=== PATIENT | male | born 1960 | race Caucasian/White ===

== ENCOUNTER 2018-06-19 07:32 | Emergency (ER) | payer MEDICARE, MEDICAID ==
--- NOTE | 2018-06-19 07:35 | EDM.PDOC ---
ED HPI GENERAL MEDICAL PROBLEM - General Stated Complaint: HARD TIME BREATHING [id number] Time Seen by Provider: 06/19/18 07:39 Source of Information: Reports: Patient History Limitations: Reports: No Limitations - History of Present Illness INITIAL COMMENTS - FREE TEXT/NARRATIVE: Pt to ER with c/o drainage from an abscess under the strap of his trach. Patient states a few days ago he noticed a "hard ball" under the trach. Patient states he was seen in the clinic and started on Augmentin. Patient states this morning the area "popped" and had quite a bit of foul smelling drainage. Patient states he is concerned about the "hole under the strap of the trach". Patient denies fever or chills. Patient has a hx of throat cancer, thus the trach. Patient states the pain has lessened since the abscess has opened up. Onset: Today, Gradual Neck Pain Score (Numeric/FACES): 3 - Related Data Allergies Allergy/AdvReac Type Severity Reaction Status Date / Time No Known Allergies Allergy Verified 06/19/18 07:41 Home Meds: Home Meds Aspirin [Stan Chewable] 81 mg PO DAILY 01/14/14 [History] fentaNYL [Duragesic] 75 mcg PO ASDIRECTED 01/14/14 [History] metFORMIN [Glucophage XR] 500 mg PO DAILY 01/14/14 [History] oxyCODONE 5 mg PO BID 01/14/14 [History] Fenofibrate Nanocrystallized [Fenofibrate] 145 mg PO DAILY 12/10/15 [History] Levothyroxine 150 mcg PO DAILY 12/10/15 [History] Losartan [Cozaar] 25 mg PO BEDTIME 12/10/15 [History] atorvaSTATin [Lipitor] 20 mg PO DAILY 12/10/15 [History] tiZANidine [Zanaflex] 8 mg PO Q6HR PRN 12/11/15 [History] Social & Family History - Living Situation & Occupation Living situation: Reports: , with Family Occupation: Disabled ED ROS GENERAL - Review of Systems Review Of Systems: ROS reveals no pertinent complaints other than HPI. ED EXAM, GENERAL - Physical Exam Exam: See Below Exam Limited By: No Limitations General Appearance: Alert, WD/WN, No Apparent Distress Eye Exam: Bilateral Eye: EOMI, Normal Inspection Ears: Normal External Exam, Hearing Grossly Normal Nose: Normal Inspection Throat/Mouth: Other (trach, open and draining abscess under the strap of the trach. ) Head: Atraumatic, Normocephalic Neck: Full Range of Motion Respiratory/Chest: No Respiratory Distress, Decreased Breath Sounds, Crackles, Rhonchi Cardiovascular: Normal Peripheral Pulses, Regular Rate, Rhythm, No Edema, No Gallop, No JVD, No Murmur, No Rub Peripheral Pulses: 2+: Radial (L), Radial (R) GI/Abdominal: Normal Bowel Sounds, Soft, Non-Tender (Male) Exam: Deferred Rectal (Males) Exam: Deferred Back Exam: Normal Inspection, Full Range of Motion Extremities: Normal Inspection, Normal Range of Motion, Non-Tender, No Pedal Edema, Normal Capillary Refill Neurological: Alert, Oriented, CN II-XII Intact, Normal Cognition, Normal Gait, Normal Reflexes, No Motor/Sensory Deficits Psychiatric: Normal Affect, Normal Mood Skin Exam: Warm, Dry, Wound/Incision (open skin abscess to the anterior neck, just below the trach site, small amount of white/bloody drainage. ) Lymphatic: No Adenopathy Course - Vital Signs Last Recorded V/S: Last Vital Signs Temp 97.4 F 06/19/18 07:48 Pulse 101 H 06/19/18 07:48 Resp 18 06/19/18 07:48 BP 157/87 H 06/19/18 07:48 Pulse Ox 93 L 06/19/18 07:48 - Orders/Labs/Meds Orders: Active Orders 24 hr Category Date Time Status CULTURE WOUND [RM] Urgent Lab 06/19/18 07:44 Received Meds: Medications Discontinued Medications Generic Name Dose Route Start Last Admin Trade Name Fariba PRN Reason Stop Dose Admin Mupirocin 1 gm 06/19/18 08:00 Bactroban Oint TOP 06/19/18 08:01 ONETIME ONE Departure - Departure Time of Disposition: 08:00 Disposition: Home, Self-Care 01 Condition: Fair Clinical Impression: Abscess - Discharge Information *PRESCRIPTION DRUG MONITORING PROGRAM REVIEWED*: No *COPY OF PRESCRIPTION DRUG MONITORING REPORT IN PATIENT MILLI: No Instructions: Skin Abscess, [id number] Forms: ED Department Discharge Additional Instructions: Change Antibiotics to Doxycycline Cover with Bactroban and a gauze pad until healed Follow up with your primary care facility - My Orders Last 24 Hours: My Active Orders 06/19/18 07:44 CULTURE WOUND [RM] Urgent - Assessment/Plan Last 24 Hours: My Active Orders 06/19/18 07:44 CULTURE WOUND [RM] Urgent
[2018-06-19 07:49] VITALS: BP 157/87
[2018-06-19] MEDS: Mupirocin Oint 22 GM Tube TOP ONE (08:05)
== END 2018-06-19 08:19 | disposition home or self-care (01) ==
LOC: DL.ED 07:32
DX: L02.11 Cutaneous abscess of neck (principal); Z79.899 Other long term (current) drug therapy; Z79.82 Long term (current) use of aspirin; Z79.84 Long term (current) use of oral hypoglycemic drugs
CPT/HCPCS: 87070; 99283; A9270

== ENCOUNTER 2019-07-08 19:39 | Emergency (ER) | payer MEDICARE, MEDICAID ==
[2019-07-08] MEDS ORDERED: Acetaminophen/HYDROcodone 325-10 MG Tab PO ONE (19:40)
--- NOTE | 2019-07-08 20:25 | EDM.PDOC ---
ED HPI GENERAL MEDICAL PROBLEM - General Chief Complaint: Lower Extremity Injury/Pain Stated Complaint: LEFT HEAL, CHICKEN BONE Time Seen by Provider: 07/08/19 20:24 Source of Information: Reports: Patient History Limitations: Reports: No Limitations - History of Present Illness INITIAL COMMENTS - FREE TEXT/NARRATIVE: stepped onto chicken bone 2 days ago. now swollen and painful Left Foot Pain Score (Numeric/FACES): 7 - Related Data Allergies Allergy/AdvReac Type Severity Reaction Status Date / Time amoxicillin Allergy Rash Verified 07/08/19 20:19 Home Meds: Home Meds Aspirin [Stan Chewable] 81 mg PO DAILY 01/14/14 [History] metFORMIN [Glucophage XR] 500 mg PO DAILY 01/14/14 [History] Fenofibrate Nanocrystallized [Fenofibrate] 145 mg PO DAILY 12/10/15 [History] Levothyroxine 150 mcg PO DAILY 12/10/15 [History] Losartan [Cozaar] 25 mg PO BEDTIME 12/10/15 [History] atorvaSTATin [Lipitor] 20 mg PO DAILY 12/10/15 [History] tiZANidine [Zanaflex] 8 mg PO Q6HR PRN 12/11/15 [History] Past Medical History - Past Surgical History HEENT Surgical History: Reports: Other (See Below) Other HEENT Surgeries/Procedures: tracheostomy Social & Family History - Living Situation & Occupation Living situation: Reports: , with Family Occupation: Disabled Review of Systems - Review of Systems Review Of Systems: ROS reveals no pertinent complaints other than HPI. ED EXAM, GENERAL - Physical Exam Exam: See Below Exam Limited By: No Limitations General Appearance: Alert, WD/WN, Mild Distress, Other (discomfort) Ears: Hearing Grossly Normal Throat/Mouth: Normal Voice, No Airway Compromise Head: Atraumatic Neck: Non-Tender, Full Range of Motion Respiratory/Chest: No Respiratory Distress Cardiovascular: Regular Rate, Rhythm GI/Abdominal: Soft, Non-Tender Extremities: Other (left heel erythematous swollen tender, NV wnl, gait limited to pain. no lymphangitis, old open wound without drainage.) Neurological: Alert, Oriented, Normal Cognition, No Motor/Sensory Deficits Psychiatric: Tearful Skin Exam: Warm, Dry, Normal Color Lymphatic: No Adenopathy Course - Vital Signs Last Recorded V/S: Last Vital Signs Temp 36.7 C 07/08/19 20:10 Pulse 102 H 07/08/19 20:10 Resp 20 07/08/19 20:10 BP 149/90 H 07/08/19 20:10 Pulse Ox 96 07/08/19 20:10 - Orders/Labs/Meds Orders: Active Orders 24 hr Category Date Time Status Vaccines to be Administered [RC] PER UNIT ROUTINE Care 07/08/19 20:32 Active Meds: Medications Discontinued Medications Generic Name Dose Route Start Last Admin Trade Name Frejennifer PRN Reason Stop Dose Admin Diphtheria/Tetanus/Acell Pertussis 0.5 ml 07/08/19 20:32 07/08/19 20:47 Adacel IM 07/08/19 20:33 0.5 ml .ONCE ONE Administration - Re-Assessments/Exams Free Text/Narrative Re-Assessment/Exam: 07/08/19 21:23 x-ray results discussed with pt. Departure - Departure Time of Disposition: 21:25 Disposition: Home, Self-Care 01 Condition: Good Clinical Impression: Wound infection, Cellulitis of heel, left - Discharge Information Instructions: Cellulitis, Adult, [id number] Forms: ED Department Discharge Additional Instructions: 1) elevate leg as much as possible 2) continue warm epsom salts soak daily 3) follow up at clinic rx givne; clindamycin 300mg qid x 40 vicodin 325mg bid prn x 6 - My Orders Last 24 Hours: My Active Orders 07/08/19 20:32 Vaccines to be Administered [RC] PER UNIT ROUTINE - Assessment/Plan Last 24 Hours: My Active Orders 07/08/19 20:32 Vaccines to be Administered [RC] PER UNIT ROUTINE
[2019-07-08 20:32] VITALS: BP 149/90; PULSE 102
[2019-07-08] MEDS ORDERED: Diphtheria,Pertussis(Acell),Tetanus Vaccine 0.5 ML SDV IM ONE (20:32)
[2019-07-08] MEDS ORDERED: Acetaminophen/HYDROcodone 325-10 MG Tab ONE (21:22)
[2019-07-08] MEDS ORDERED: Clindamycin HCl 150 MG Cap PO ONE (21:24)
== END 2019-07-08 21:32 | disposition home or self-care (01) ==
LOC: DL.ED 19:39
DX: L03.116 Cellulitis of left lower limb (principal); Z88.1 Allergy status to other antibiotic agents; Z79.82 Long term (current) use of aspirin; Z23 Encounter for immunization
CPT/HCPCS: 73620; 90471; 90715; 99283; A9270

== ENCOUNTER 2020-01-16 13:38 | Emergency (ER) | payer MEDICARE, MEDICAID ==
[2020-01-16 14:43] LABS: ANION GAP 16.7 mEq/L (7-13); CHLORIDE,CL 101 mmol/L (98-107); SODIUM,NA 139 mmol/L (136-145)
[2020-01-16] MEDS ORDERED: Vancomycin 1.75 GM in Sodium Chloride 0.9% 500 ML IV ONE (14:46)
[2020-01-16 15:24] VITALS: BP 141/79; PULSE 77
--- NOTE | 2020-01-16 15:41 | EDM.PDOC ---
ED HPI GENERAL MEDICAL PROBLEM - General Chief Complaint: Upper Extremity Injury/Pain Stated Complaint: infection in finger Time Seen by Provider: 01/16/20 14:15 Source of Information: Reports: Patient History Limitations: Reports: No Limitations - History of Present Illness INITIAL COMMENTS - FREE TEXT/NARRATIVE: This 59 yo male patient was sent to the ED by Dr. Mitchell ([facility]) due to a cellulitis in his right thumb. The patient was seen in the Clinic today and started on Bactrim. Throughout the morning the patient has noticed increased pain in the area and a red streak running up his arm. The patient called back to the clinic to report new findings and was sent to the ED for IV antibiotics. Onset Date: 01/13/20 Duration: Constant, Getting Worse Location: Reports: Upper Extremity, Right Quality: Reports: Ache, Pressure, Sharp Severity: Severe Improves with: Reports: None Worsens with: Reports: None Context: Reports: Other Associated Symptoms: Reports: No Other Symptoms Treatments MANAGER DIALYSIS: Reports: Other Medication(s) (Bactrim (one dose)) Right Finger-Thumb Pain Score (Numeric/FACES): 9 - Related Data Allergies Allergy/AdvReac Type Severity Reaction Status Date / Time amoxicillin Allergy Rash Verified 01/16/20 13:51 Home Meds: Home Meds Aspirin [Stan Chewable] 81 mg PO DAILY 01/14/14 [History] metFORMIN [Glucophage XR] 500 mg PO DAILY 01/14/14 [History] Fenofibrate Nanocrystallized [Fenofibrate] 145 mg PO DAILY 12/10/15 [History] Levothyroxine 150 mcg PO DAILY 12/10/15 [History] Losartan [Cozaar] 25 mg PO BEDTIME 12/10/15 [History] atorvaSTATin [Lipitor] 20 mg PO DAILY 12/10/15 [History] tiZANidine [Zanaflex] 8 mg PO Q6HR PRN 12/11/15 [History] Past Medical History HEENT History: Reports: Impaired Vision Cardiovascular History: Reports: None Respiratory History: Reports: None Gastrointestinal History: Reports: GERD Genitourinary History: Reports: None Musculoskeletal History: Reports: None Neurological History: Reports: None Psychiatric History: Reports: None Endocrine/Metabolic History: Reports: Diabetes, Type II Hematologic History: Reports: None Immunologic History: Reports: None Oncologic (Cancer) History: Reports: Other (See Below) Other Oncologic History: Uvula Dermatologic History: Reports: None - Infectious Disease History Infectious Disease History: Reports: Measles - Past Surgical History Head Surgeries/Procedures: Reports: None HEENT Surgical History: Reports: Other (See Below) Other HEENT Surgeries/Procedures: tracheostomy Social & Family History - Tobacco Use Smoking Status *Q: Current Every Day Smoker Years of Tobacco use: 37 Packs/Tins Daily: 0.5 Second Hand Smoke Exposure: No - Caffeine Use Caffeine Use: Reports: Soda - Recreational Drug Use Recreational Drug Use: No - Living Situation & Occupation Living situation: Reports: , with Family Occupation: Disabled Review of Systems - Review of Systems Review Of Systems: Comprehensive ROS is negative, except as noted in HPI. ED EXAM, GENERAL - Physical Exam Exam: See Below Exam Limited By: No Limitations General Appearance: Alert, WD/WN, Moderate Distress Eye Exam: Bilateral Eye: EOMI, Normal Inspection, PERRL Ears: Normal External Exam, Normal Canal, Hearing Grossly Normal, Normal TMs Nose: Normal Inspection, Normal Mucosa, No Blood Throat/Mouth: Normal Inspection, Normal Lips, Normal Teeth, Normal Gums, Normal Oropharynx, Normal Voice, No Airway Compromise Head: Atraumatic, Normocephalic Neck: Normal Inspection, Supple, Non-Tender, Full Range of Motion Respiratory/Chest: No Respiratory Distress, Lungs Clear, Normal Breath Sounds, No Accessory Muscle Use, Chest Non-Tender Cardiovascular: Normal Peripheral Pulses, Regular Rate, Rhythm, No Edema, No Gallop, No JVD, No Murmur, No Rub GI/Abdominal: Normal Bowel Sounds (Male) Exam: Deferred Rectal (Males) Exam: Deferred Back Exam: Normal Inspection, Full Range of Motion, NT Extremities: Arm Pain (right thumb and arm pain. There is redness running up the arm to the axilla, but no drainage noted at this time. ) Psychiatric: Normal Affect, Normal Mood Skin Exam: Warm, Dry, Other (cellulitis right thumb. ) Lymphatic: No Adenopathy Course - Vital Signs Last Recorded V/S: Last Vital Signs Temp 36.6 C 01/16/20 15:23 Pulse 77 01/16/20 15:23 Resp 18 01/16/20 15:23 BP 141/79 H 01/16/20 15:23 Pulse Ox 94 L 01/16/20 15:23 - Orders/Labs/Meds Orders: Active Orders 24 hr Category Date Time Status CULTURE BLOOD [BC] Stat Lab 01/16/20 13:57 Received CULTURE BLOOD [BC] Stat Lab 01/16/20 13:57 Received Blood Culture x2 Reflex Set [OM.PC] Stat Oth 01/16/20 13:47 Ordered Labs: Laboratory Tests 01/16/20 01/16/20 01/16/20 Range/Units 13:52 13:52 13:52 WBC 17.8 H (5.0-10.0) 10^3/uL RBC 6.02 (4.6-6.2) 10^6/uL Hgb 17.3 D (14.0-18.0) g/dL Hct 51.0 (40.0-54.0) % MCV 84.7 D (80-100) fL MCH 28.7 (27.0-34.0) pg MCHC 33.9 (33.0-35.0) g/dL Plt Count 243 (150-450) 10^3/uL Neut % (Auto) 79.0 H (42.2-75.2) % Lymph % (Auto) 12.2 L (20.5-50.1) % [place] % (Auto) 7.9 (2-8) % Eos % (Auto) 0.7 L (1.0-3.0) % Baso % (Auto) 0.2 (0.0-1.0) % Sodium 139 (136-145) mmol/L Potassium 3.7 (3.5-5.1) mmol/L Chloride 101 (98-107) mmol/L Carbon Dioxide 25 (21-32) mmol/L Anion Gap 16.7 H (7-13) mEq/L BUN 10 (7-18) mg/dL Creatinine 0.95 (0.70-1.30) mg/dL Est Cr Clr Drug Dosing 87.51 mL/min Estimated GFR (MDRD) > 60 BUN/Creatinine Ratio 10.5 (No establ ref range) Glucose 130 H (74-99) mg/dL Lactic Acid 1.2 (0.4-2.0) mmol/L Calcium 9.2 (8.5-10.1) mg/dL Total Bilirubin 0.6 (0.2-1.0) mg/dL AST 21 (15-37) U/L ALT 46 (16-63) U/L Alkaline Phosphatase 129 H (46-116) U/L Total Protein 7.5 (6.4-8.2) g/dL Albumin 4.1 (3.4-5.0) g/dL Globulin 3.4 Albumin/Globulin Ratio 1.2 Meds: Medications Discontinued Medications Generic Name Dose Route Start Last Admin Trade Name Freq PRN Reason Stop Dose Admin Vancomycin HCl 1.75 gm/ Sodium 500 mls @ 334 mls/hr 01/16/20 14:46 01/16/20 15:09 Chloride IV 01/16/20 16:15 334 mls/hr ONETIME ONE Administration Departure - Departure Time of Disposition: 17:19 Disposition: Home, Self-Care 01 Condition: Fair Clinical Impression: Cellulitis of right thumb - Discharge Information *PRESCRIPTION DRUG MONITORING PROGRAM REVIEWED*: Not Applicable *COPY OF PRESCRIPTION DRUG MONITORING REPORT IN PATIENT MILLI: Not Applicable Instructions: Cellulitis, Adult, [id number] Forms: ED Department Discharge Care Plan Goals: The patient was advised of the examination and lab results during the visit. The patient was given an IV dose of Vancomycin while in the ED. The patient was discharged with a script for Keflex (500 mg) #30 to take 1 by mouth 3 times per day for 10 days. The patient should continue to take the Bactrim as prescribed by his primary care provider. The patient was encouraged to follow-up with his primary care facility. If the patient has any additional symptoms or concerns, the patient should either return to the emergency department or visit his primary care facility. Sepsis Event Note - Evaluation Sepsis Screening Result: No Definite Risk - Focused Exam Vital Signs: Vital Signs Temp Pulse Resp BP Pulse Ox 01/16/20 15:23 36.6 C 77 18 141/79 H 94 L 01/16/20 13:43 36.1 C 98 20 142/93 H 95 Date Exam was Performed: 01/16/20 Time Exam was Performed: 17:19 - My Orders Last 24 Hours: My Active Orders 01/16/20 13:47 Blood Culture x2 Reflex Set [OM.PC] Stat 01/16/20 13:57 CULTURE BLOOD [BC] Stat CULTURE BLOOD [BC] Stat - Assessment/Plan Last 24 Hours: My Active Orders 01/16/20 13:47 Blood Culture x2 Reflex Set [OM.PC] Stat 01/16/20 13:57 CULTURE BLOOD [BC] Stat CULTURE BLOOD [BC] Stat
== END 2020-01-16 17:35 | disposition home or self-care (01) ==
LOC: DL.ED 13:38
DX: L03.011 Cellulitis of right finger (principal); Z88.1 Allergy status to other antibiotic agents; E11.9 Type 2 diabetes mellitus without complications; Z79.82 Long term (current) use of aspirin; Z79.84 Long term (current) use of oral hypoglycemic drugs; Z79.899 Other long term (current) drug therapy; F17.210 Nicotine dependence, cigarettes, uncomplicated
CPT/HCPCS: 36415; 80053; 83605; 85025; 87040; 96365; 96366; 99283; J3370; J7040

== ENCOUNTER 2020-01-17 14:20 | Emergency (ER) | payer MEDICARE, MEDICAID ==
--- NOTE | 2020-01-17 14:34 | EDM.PDOC ---
ED HPI GENERAL MEDICAL PROBLEM - General Chief Complaint: Skin Complaint Stated Complaint: THUMB INFECTED WAS HERE YEST Time Seen by Provider: 01/17/20 14:28 Source of Information: Reports: Patient History Limitations: Reports: No Limitations - History of Present Illness INITIAL COMMENTS - FREE TEXT/NARRATIVE: This 59 yo male patient reports to the ED with right thumb pain and redness. The patient was seen in both the ED yesterday and in the clinic yesterday with similar symptoms. The patient was given IV Vancomycin in the ED yesterday and has prescriptions for Bactrim and Keflex. The patient reports he has been taking his medications as prescribed. Duration: Day(s):, Constant Location: Reports: Upper Extremity, Right Quality: Reports: Ache Severity: Moderate Improves with: Reports: None Worsens with: Reports: None Context: Reports: Other Associated Symptoms: Reports: No Other Symptoms Treatments SACK REPAIRER: Reports: Acetaminophen, NSAIDS - Related Data Allergies Allergy/AdvReac Type Severity Reaction Status Date / Time amoxicillin Allergy Rash Verified 01/16/20 13:51 Home Meds: Home Meds Aspirin [Stan Chewable] 81 mg PO DAILY 01/14/14 [History] metFORMIN [Glucophage XR] 500 mg PO DAILY 01/14/14 [History] Fenofibrate Nanocrystallized [Fenofibrate] 145 mg PO DAILY 12/10/15 [History] Levothyroxine 150 mcg PO DAILY 12/10/15 [History] Losartan [Cozaar] 25 mg PO BEDTIME 12/10/15 [History] atorvaSTATin [Lipitor] 20 mg PO DAILY 12/10/15 [History] tiZANidine [Zanaflex] 8 mg PO Q6HR PRN 12/11/15 [History] Past Medical History HEENT History: Reports: Impaired Vision Cardiovascular History: Reports: None Respiratory History: Reports: None Gastrointestinal History: Reports: GERD Genitourinary History: Reports: None Musculoskeletal History: Reports: None Neurological History: Reports: None Psychiatric History: Reports: None Endocrine/Metabolic History: Reports: Diabetes, Type II Hematologic History: Reports: None Immunologic History: Reports: None Oncologic (Cancer) History: Reports: Other (See Below) Other Oncologic History: Uvula Dermatologic History: Reports: None - Infectious Disease History Infectious Disease History: Reports: Measles - Past Surgical History Head Surgeries/Procedures: Reports: None HEENT Surgical History: Reports: Other (See Below) Other HEENT Surgeries/Procedures: tracheostomy Social & Family History - Caffeine Use Caffeine Use: Reports: Soda - Living Situation & Occupation Living situation: Reports: , with Family Occupation: Disabled ED ROS GENERAL - Review of Systems Review Of Systems: Comprehensive ROS is negative, except as noted in HPI. ED EXAM, SKIN/RASH Exam: See Below Exam Limited By: No Limitations General Appearance: Alert, WD/WN, Mild Distress Eye Exam: Bilateral Eye: EOMI, Normal Inspection, PERRL Ears: Normal External Exam, Normal Canal, Hearing Grossly Normal, Normal TMs Nose: Normal Inspection, Normal Mucosa, No Blood Throat/Mouth: Normal Inspection, Normal Lips, Normal Teeth, Normal Gums, Normal Oropharynx, Normal Voice, No Airway Compromise Head: Atraumatic, Normocephalic Neck: Normal Inspection, Supple, Non-Tender, Full Range of Motion Respiratory/Chest: No Respiratory Distress, Lungs Clear, Normal Breath Sounds, No Accessory Muscle Use, Chest Non-Tender Cardiovascular: Normal Peripheral Pulses, Regular Rate, Rhythm, No Edema, No Gallop, No JVD, No Murmur, No Rub GI/Abdominal: Normal Bowel Sounds, Soft, Non-Tender, No Organomegaly, No Distention, No Abnormal Bruit, No Mass (Male) Exam: Deferred Rectal (Males) Exam: Deferred Back Exam: Normal Inspection Extremities: Arm Pain (right thumb erythema) Neurological: Alert, Oriented, CN II-XII Intact, Normal Cognition, Normal Gait, Normal Reflexes, No Motor/Sensory Deficits Psychiatric: Normal Affect, Normal Mood Skin: Erythema, Increased Warmth Location, Skin: Upper Extremity, Right Characteristics: Erythematous Associated features: Warmth, Tenderness, Swelling Lymphatic: No Adenopathy Departure - Departure Time of Disposition: 14:33 Disposition: Home, Self-Care 01 Condition: Fair Clinical Impression: Cellulitis Qualifiers: Site of cellulitis: extremity Site of cellulitis of extremity: upper extremity Laterality: right Qualified Code(s): L03.113 - Cellulitis of right upper limb - Discharge Information *PRESCRIPTION DRUG MONITORING PROGRAM REVIEWED*: Not Applicable *COPY OF PRESCRIPTION DRUG MONITORING REPORT IN PATIENT MILLI: Not Applicable Instructions: Cellulitis, Adult, [id number] Forms: ED Department Discharge Care Plan Goals: The patient was advised of the examination results during the visit. The patient was encouraged to continue with the prescription medications as prescribed. If the patient has any additional symptoms or concerns, the patient should either return to the emergency department or visit his primary care facility. Sepsis Event Note - Focused Exam Date Exam was Performed: 01/17/20 Time Exam was Performed: 14:35
== END 2020-01-17 14:44 | disposition home or self-care (01) ==
LOC: DL.ED 14:20
CPT/HCPCS: 99283

== ENCOUNTER 2023-04-28 07:57 | Emergency (ER) | payer MEDICARE, MEDICAID ==
[2023-04-28] MEDS ORDERED: Sodium Chloride 0.9% 10 ML Syringe FLUSH PRN (08:00)
[2023-04-28] MEDS ORDERED: Aspirin 81 MG Tab.Chew PO ONE (08:01)
[2023-04-28] MEDS ORDERED: Nitroglycerin 0.4 MG Tab.SL SL PRN (08:01)
[2023-04-28 08:09] LABS: BASOPHILS PERCENT AUTO 0.2 % (0.0-1.0); EOSINOPHILS PERCENT AUTO 1.8 % (1.0-3.0); HEMATOCRIT 51.2 % (40.0-54.0); HEMOGLOBIN 17.1 g/dL (14.0-18.0); LYMPHOCYTES PERCENT AUTO 21.2 % (20.5-50.1); MEAN CORPUSCULAR HEMOGLOBIN 28.4 pg (27.0-34.0); MEAN CORPUSCULAR HGB CONC 33.4 g/dL (33.0-35.0); MEAN CORPUSCULAR VOLUME 84.9 fL (80-100); MONOCYTES PERCENT AUTO 8.4 % (2-8); NEUTROPHILS PERCENT AUTO 68.4 % (42.2-75.2); PLATELET COUNT,PLT 235 10^3/uL (150-450); RED BLOOD CELL COUNT 6.03 10^6/uL (4.6-6.2); WHITE BLOOD CELL COUNT,WBC 12.8 10^3/uL (5.0-10.0)
[2023-04-28 08:19] VITALS: BP 163/98
[2023-04-28 08:27] LABS: PROTHROMBIN TIME 9.9 SEC (9.0-12.0); PTT,PARTIAL THROMBOPLSTIN TIME 27.2 SEC (22.0-34.0)
[2023-04-28 08:31] LABS: ALANINE AMINOTRANSFERASE,ALT 44 U/L (16-63); ALBUMIN 3.7 g/dL (3.4-5.0); ALKALINE PHOSPHATASE 133 U/L (46-116); ANION GAP 7.7 mEq/L (7-13); ASPARTATE AMNIOTRANSFERASE,AST 22 U/L (15-37); BILIRUBIN TOTAL 0.4 mg/dL (0.2-1.0); BLOOD UREA NITROGEN,BUN 8 mg/dL (7-18); BUN/CREATININE RATIO 7.4 (No establ ref range); CARBON DIOXIDE,CO2 36 mmol/L (21-32); CHLORIDE,CL 98 mmol/L (98-107); CREATININE 1.08 mg/dL (0.70-1.30); GLUCOSE RANDOM 206 mg/dL (70-99); LIPASE 229 U/L (73-393); POTASSIUM,K 3.7 mmol/L (3.5-5.1); PROTEIN TOTAL,TP 7.4 g/dL (6.4-8.2); SODIUM,NA 138 mmol/L (136-145)
[2023-04-28 08:32] LABS: B-TYPE NATRIURETIC PEPTIDE,BNP 20 pg/ml (0-100)
[2023-04-28 08:33] LABS: ESTIMATED GFR 78 mL/min (>=60)
[2023-04-28] MEDS ORDERED: Famotidine 20 MG/2 ML SDV IVPUSH ONE (08:38)
[2023-04-28 08:53] VITALS: PULSE 74
[2023-04-28] MEDS ORDERED: Morphine 4 MG/ML Syringe IVPUSH ONE (08:53)
[2023-04-28] MEDS ORDERED: cefTRIAXone 1 GM Vial IVPUSH ONE (09:40)
[2023-04-28] MEDS ORDERED: Azithromycin 500 MG in Sodium Chloride 0.9% 250 ML IV ONE (09:41)
== END 2023-04-28 11:05 | disposition home or self-care (01) ==
LOC: DL.ED 07:57
DX: R07.1 Chest pain on breathing (principal); J18.9 Pneumonia, unspecified organism; F17.210 Nicotine dependence, cigarettes, uncomplicated; E11.9 Type 2 diabetes mellitus without complications; K21.9 Gastro-esophageal reflux disease without esophagitis; Z88.0 Allergy status to penicillin; Z79.82 Long term (current) use of aspirin; Z79.899 Other long term (current) drug therapy
CPT/HCPCS: 36415; 71045; 80053; 83690; 83880; 84484; 85025; 85379; 85610; 85730; 93005; 96365; 96375; 99285; A9270; J0456; J0696; J2270; J3490; J7050; 93010; 99284

== ENCOUNTER 2023-07-27 16:00 | Emergency (ER) | payer MEDICARE, OTHER, MEDICAID ==
[2023-07-27 16:28] VITALS: BP 166/94; PULSE 98
[2023-07-27 16:29] LABS: BASOPHILS PERCENT AUTO 0.4 % (0.0-1.0); EOSINOPHILS PERCENT AUTO 1.6 % (1.0-3.0); HEMATOCRIT 51.5 % (40.0-54.0); HEMOGLOBIN 17.2 g/dL (14.0-18.0); LYMPHOCYTES PERCENT AUTO 22.7 % (20.5-50.1); MEAN CORPUSCULAR HEMOGLOBIN 28.2 pg (27.0-34.0); MEAN CORPUSCULAR HGB CONC 33.4 g/dL (33.0-35.0); MEAN CORPUSCULAR VOLUME 84.4 fL (80-100); MONOCYTES PERCENT AUTO 8.3 % (2-8); PLATELET COUNT,PLT 240 10^3/uL (150-450); WHITE BLOOD CELL COUNT,WBC 11.2 10^3/uL (5.0-10.0)
[2023-07-27 16:30] LABS: APPEARANCE,URINE CLOUDY (CLEAR); BILIRUBIN,URINE SMALL (NEGATIVE); COLOR,URINE RED (YELLOW); GLUCOSE,URINE NEGATIVE (NEGATIVE); KETONES,URINE TRACE (NEGATIVE); LEUKOCYTE ESTERASE,URINE NEGATIVE (NEGATIVE); NITRITE,URINE NEGATIVE (NEGATIVE); OCCULT BLOOD,URINE LARGE (NEGATIVE); PROTEIN,URINE >=300 (NEGATIVE)
[2023-07-27 16:41] LABS: RBC,URINE PACKED /HPF (0-5)
[2023-07-27 16:42] LABS: CALCIUM OXALATE CRYSTALS,URINE FEW /HPF (NOT SEEN); EPITHELIAL CELLS,URINE RARE /HPF (NOT SEEN)
[2023-07-27 16:43] LABS: WBC,URINE NOT SEEN /HPF (0-5/HPF)
[2023-07-27 16:44] LABS: BACTERIA,URINE RARE /HPF (0-FEW/HPF)
[2023-07-27 16:47] LABS: INR 0.9 (0.9-1.2); PROTHROMBIN TIME 9.7 SEC (9.0-12.0); PTT,PARTIAL THROMBOPLSTIN TIME 25.9 SEC (22.0-34.0)
[2023-07-27 16:49] LABS: ALBUMIN 3.7 g/dL (3.4-5.0); ANION GAP 8.8 mEq/L (7-13); BILIRUBIN TOTAL 0.4 mg/dL (0.2-1.0); BUN/CREATININE RATIO 10.6 (No establ ref range); CALCIUM 8.8 mg/dL (8.5-10.1); CREATININE 1.04 mg/dL (0.70-1.30); EST CRCL DRUG DOSING (CG) 76.04 mL/min; POTASSIUM,K 3.8 mmol/L (3.5-5.1); PROTEIN TOTAL,TP 7.5 g/dL (6.4-8.2)
[2023-07-27] MEDS ORDERED: Take Home: Acetaminophen/HYDROcodone 325-5 MG, 5 Tab Pack PO ONE (18:26)
[2023-07-27] MEDS ORDERED: Take Home: Ondansetron 4 MG Tab.DIS, 5 Tab Pack PO ONE (18:37)
== END 2023-07-27 19:07 | disposition home or self-care (01) ==
LOC: DL.ED 16:00
DX: N20.1 Calculus of ureter (principal); E11.9 Type 2 diabetes mellitus without complications; Z87.891 Personal history of nicotine dependence; Z88.0 Allergy status to penicillin; Z79.82 Long term (current) use of aspirin; Z79.84 Long term (current) use of oral hypoglycemic drugs; Z79.899 Other long term (current) drug therapy
CPT/HCPCS: 36415; 74176; 80053; 81001; 85025; 85610; 85730; 99284; A9270-GY; Q0162

== ENCOUNTER 2023-11-08 21:24 | Emergency (ER) | payer MEDICARE, OTHER, MEDICAID ==
[2023-11-08] MEDS: Ondansetron 4 MG/2 ML SDV IVPUSH ONE (21:40)
[2023-11-08] MEDS: HYDROmorphone 0.5 MG/0.5 ML Syringe IVPUSH ONE (21:40)
[2023-11-08] MEDS: Ketorolac 30 MG/ML SDV IVPUSH ONE (21:40)
[2023-11-08 21:44] LABS: BASOPHILS PERCENT AUTO 0.2 % (0.0-1.0); EOSINOPHILS PERCENT AUTO 0.6 % (1.0-3.0); HEMATOCRIT 34.2 % (40.0-54.0); HEMOGLOBIN 11.3 g/dL (14.0-18.0); LYMPHOCYTES PERCENT AUTO 15.1 % (20.5-50.1); MEAN CORPUSCULAR HEMOGLOBIN 28.4 pg (27.0-34.0); MEAN CORPUSCULAR VOLUME 85.9 fL (80-100); MONOCYTES PERCENT AUTO 6.7 % (2-8); NEUTROPHILS PERCENT AUTO 77.4 % (42.2-75.2); PLATELET COUNT,PLT 187 10^3/uL (150-450); RED BLOOD CELL COUNT 3.98 10^6/uL (4.6-6.2)
[2023-11-08 22:03] LABS: A/G RATIO 1.1; ALANINE AMINOTRANSFERASE,ALT 31 U/L (16-63); ALBUMIN 4.1 g/dL (3.4-5.0); ALKALINE PHOSPHATASE 119 U/L (46-116); ANION GAP 10.5 mEq/L (7-13); ASPARTATE AMNIOTRANSFERASE,AST 12 U/L (15-37); BILIRUBIN TOTAL 0.4 mg/dL (0.2-1.0); BLOOD UREA NITROGEN,BUN 17 mg/dL (7-18); BUN/CREATININE RATIO 12.1 (No establ ref range); CALCIUM 9.4 mg/dL (8.5-10.1); CARBON DIOXIDE,CO2 32 mmol/L (21-32); CHLORIDE,CL 94 mmol/L (98-107); ESTIMATED GFR 57 mL/min (>=60); GLUCOSE RANDOM 229 mg/dL (70-99); POTASSIUM,K 3.5 mmol/L (3.5-5.1); PROTEIN TOTAL,TP 7.9 g/dL (6.4-8.2); SODIUM,NA 133 mmol/L (136-145)
[2023-11-08 22:07] LABS: APPEARANCE,URINE CLEAR (CLEAR); BILIRUBIN,URINE NEGATIVE (NEGATIVE); COLOR,URINE DARK YELLOW (YELLOW); GLUCOSE,URINE NEGATIVE (NEGATIVE); KETONES,URINE TRACE (NEGATIVE); LEUKOCYTE ESTERASE,URINE NEGATIVE (NEGATIVE); NITRITE,URINE NEGATIVE (NEGATIVE); OCCULT BLOOD,URINE NEGATIVE (NEGATIVE); PROTEIN,URINE 30 (NEGATIVE); UROBILINOGEN,URINE 0.2 mg/dL (0.2-1.0)
[2023-11-08 22:08] LABS: LACTIC ACID 2.2 mmol/L (0.4-2.0)
[2023-11-08] MEDS: Sodium Chloride 0.9% 1,000 ML IV ONE (22:17)
[2023-11-08 22:19] LABS: AMORPHOUS SEDIMENT,URINE FEW /HPF (NOT SEEN); BACTERIA,URINE RARE /HPF (0-FEW/HPF); EPITHELIAL CELLS,URINE RARE /HPF (NOT SEEN); MUCUS,URINE MODERATE /LPF (NOT SEEN); RBC,URINE 0-5 /HPF (0-5); WBC,URINE 0-5 /HPF (0-5/HPF)
[2023-11-08 22:25] LABS: C-REACTIVE PROTEIN 1.08 ng/dL (<=0.50)
[2023-11-08 22:37] VITALS: BP 149/104; PULSE 88
== END 2023-11-09 00:46 | disposition home or self-care (01) ==
LOC: DL.ED 21:24
DX: N17.9 Acute kidney failure, unspecified (principal); M53.3 Sacrococcygeal disorders, not elsewhere classified; D72.829 Elevated white blood cell count, unspecified; E11.9 Type 2 diabetes mellitus without complications; F17.210 Nicotine dependence, cigarettes, uncomplicated; Z88.0 Allergy status to penicillin; Z79.82 Long term (current) use of aspirin; Z79.84 Long term (current) use of oral hypoglycemic drugs; Z79.899 Other long term (current) drug therapy
CPT/HCPCS: 36415; 74176; 80053; 81001; 83605; 83690; 84145; 85025; 86140; 96361; 96374; 96375; 99284; J1170; J1885; J2405; J7030